=== PATIENT | male | born 1950 | race Caucasian/White ===

== ENCOUNTER 2019-08-18 21:31 | Emergency (ER) | payer OTHER ==
[~2019-08-18] VITALS: Ht 175.3 cm; Wt 84.4 kg
--- NOTE | 2019-08-18 21:33 | NUR ---
BIBFAMILY C/O GENERALIZED CHEST PAIN X1 DAY, PROGRESSIVELY WORSE WITHIN PAST HOUR. +SOB, -DIZZINESS, -NAUSEA/VOMITTING. pt to bed 7, pt aaox4, pt on monitor, piv started, blood collected, sent to lab.
[2019-08-18] MEDS ORDERED: NITROGLYCERIN 0.4 MG/TAB BOTTLE ONE (21:43)
[2019-08-18] MEDS ORDERED: ASPIRIN 325 MG TABLET ONE (21:43)
--- NOTE | 2019-08-18 21:43 | NUR ---
PER DR. HANCOCK, CANCEL NITRO ORDER D/T PT HAVING AMI
--- NOTE | 2019-08-18 21:46 | NUR ---
Code STEMI called. [facility] called. Facesheet and EKG faxed.
[2019-08-18 21:50] LABS: BASOPHILS # (AUTO) 0.1 /CMM (0.0-0.2); BASOPHILS % (AUTO) 0.8 % (0.0-2.0); EOSINOPHILS % (AUTO) 2.1 % (0.0-6.0); HEMATOCRIT 47 % (39-51); LYMPHOCYTES # (AUTO) 2.3 /CMM (0.8-4.8); LYMPHOCYTES % (AUTO) 24.9 % (20.0-44.0); MEAN CORPUSCULAR HGB CONC 34 g/dl (31.0-36.0); MEAN CORPUSCULAR VOLUME 91 fL (80-96); MONOCYTES # (AUTO) 0.9 /CMM (0.1-1.30); MONOCYTES % (AUTO) 10.3 % (2.0-12.0); NEUTROPHILS # (AUTO) 5.6 /CMM (1.8-8.9); NEUTROPHILS % (AUTO) 61.9 % (43.0-81.0); PLATELET COUNT (AUTO) 257 /CMM (150-450); WHITE BLOOD COUNT (AUTO) 9.1 K/uL (4.3-11.0)
--- NOTE | 2019-08-18 21:50 | NUR ---
PT 2ND IV LINE STARTED, PT BELONGINGS IN BAG GIVEN TO DAUGHTER, PT GOWNED
--- NOTE | 2019-08-18 21:59 | NUR ---
MARII FROM [facility] CALLED, PER MARII, HE SENT ALL INFO TO CARDIO, AWAITING CALL BACK AT THIS TIME; WILL CALL US FOR AN UPDATE
[2019-08-18 22:00] LABS: CALCIUM, SERUM 9.9 mg/dL (8.5-10.1); CREATININE 1.2 mg/dL (0.6-1.3); POTASSIUM 3.8 mmol/L (3.5-5.1)
[2019-08-18] MEDS ORDERED: IV NS 0.9% 1,000 ML BAG IV ONE (22:00)
[2019-08-18] MEDS ORDERED: NITROGLYCERIN 0.4 MG/TAB BOTTLE SL ONE (22:00)
[2019-08-18] MEDS ORDERED: ASPIRIN 325 MG TABLET PO ONE (22:00)
--- NOTE | 2019-08-18 22:02 | NUR ---
PT RATES CHEST PAIN 8/10, RADIATING TO BOTH ARMS, PT ENDORSES "FEELING OF SOMEONE TAKING B/P ON BOTH ARMS", DENIES ANY SOB AT THIS TIME, PT IS ON 2L NC, PT AWAKE AND ALERT.
--- NOTE | 2019-08-18 22:05 | NUR ---
Call from [facility]. Pt accepted by Dr. Mattson. ETA 20 minutes.
[2019-08-18] MEDS ORDERED: MORPHINE SULFATE INJ 4 MG/ML DISP.SYRIN ONE (22:11)
[2019-08-18] MEDS ORDERED: HEPARIN SODIUM, PORCINE 5000 UNITS/1 ML VIAL ONE (22:16)
[2019-08-18 22:25] VITALS: BP 191/126
--- NOTE | 2019-08-18 22:26 | NUR ---
[facility] TRANSPORT FOR [facility] IN FACILITY, REPORT GIVEN TO [facility] NURSE
[2019-08-18] MEDS ORDERED: HEPARIN SODIUM, PORCINE 5000 UNITS/1 ML VIAL IV ONE (22:30)
[2019-08-18] MEDS ORDERED: MORPHINE SULFATE INJ 2 MG/ML DISP.SYRIN IV ONE (22:30)
--- NOTE | 2019-08-18 22:31 | NUR ---
PT LEFT VIA [facility] TRANSPORT TO [facility], FAMILY AWARE OF TRANFER, PT V/S RECORDED, DENIES ANY SOB AT THIS TIME, PT AAOX4, REPORT GIVEN TO TRANSPORT, ALL PAPERWORK GIVEN.
== END 2019-08-18 22:36 | disposition short-term general hospital (02) ==
LOC: ER 21:33
DX: I21.3 ST elevation (STEMI) myocardial infarction of unspecified site (principal); I10 Essential (primary) hypertension; Z88.0 Allergy status to penicillin
CPT/HCPCS: 36415; 71045; 80048; 84484; 85025; 85730; 93005 ×2; 96374; 96375; 99291; J1644; J2270